=== PATIENT | female | born 1995 | race Caucasian/White ===

== ENCOUNTER 2017-07-02 14:48 | Emergency (ER) | payer BC ==
--- NOTE | 2017-07-02 14:54 | UC ---
Knee Pain HPI - HPI Summary HPI Summary: 22 YEAR OLD PRESENTS WITH LEFT KNEE PAIN AFTER TWISTING WHILE PLAYING SOCCER. - History of Current Complaint Stated Complaint: LEFT KNEE PAIN Time Seen by Provider: 07/02/17 14:54 Hx Obtained From: Patient Hx Last Menstrual Period: 1.5 years Onset/Duration: Sudden Onset Severity Initially: Moderate Severity Currently: Moderate Pain Scale Used: 0-10 Numeric - 6 Character: Sharp Aggravating Factor(s): Movement Alleviating Factor(s): Rest - Allergies/Home Medications Allergies/Adverse Reactions: Allergies Allergy/AdvReac Type Severity Reaction Status Date / Time No Known Allergies Allergy Verified 07/02/17 15:04 Home Medications: Home Medications Acyclovir* [Zovirax 200 MG CAP*] 200 mg PO BID 07/02/17 [History Confirmed 07/02] PMH/Surg Hx/FS Hx/Imm Hx Previously Healthy: Yes - Surgical History Surgical History: None - Family History Known Family History: Negative: Cardiac Disease, Hypertension, Diabetes - Social History Alcohol Use: Weekly Alcohol Amount: 3 Substance Use Type: None Smoking Status (MU): Never Smoked Tobacco Have You Smoked in the Last Year: No Review of Systems Constitutional: Negative Skin: Negative Eyes: Negative ENT: Negative Respiratory: Negative Cardiovascular: Negative Gastrointestinal: Negative Genitourinary: Negative Motor: Negative Neurovascular: Negative Musculoskeletal: Other: - LEFT KNEE PAIN/SWELLING Neurological: Negative Psychological: Negative All Other Systems Reviewed And Are Negative: Yes Physical Exam Triage Information Reviewed: Yes Vital Signs Reviewed: Yes Eye Exam: Normal ENT Exam: Normal Dental Exam: Normal Neck exam: Normal Neck: Positive: 1 Respiratory Exam: Normal Cardiovascular Exam: Normal Abdominal Exam: Normal Musculoskeletal: Positive: Strength Intact, ROM Intact, No Edema, Other: - LEFT KNEE PAIN Neurological Exam: Normal Psychological Exam: Normal Skin Exam: Normal Knee Pain Course/Dx - Differential Dx/Diagnosis Provider Diagnoses: LEFT KNEE CONTUSION Discharge - Discharge Plan Condition: Stable Disposition: HOME Prescriptions: Ibuprofen TAB* [Motrin TAB* 800 MG] 800 mg PO Q8H #30 tab Patient Education Materials: Knee Sprain (ED) Referrals: Elias Morales MD [Medical Doctor] - Non Staff,Doctor [Primary Care Provider] -
[2017-07-02 15:08] VITALS: BP 102/67
--- NOTE | 2017-07-02 15:52 | RAD ---
INDICATION: Left knee injury. TECHNIQUE: 4 views of the left knee were obtained. FINDINGS: The bones are in normal alignment. No joint effusion or fracture is seen. Joint spaces appear maintained. IMPRESSION: NO EVIDENCE FOR FRACTURE, IF THE PATIENT'S SYMPTOMS PERSIST RECOMMEND FOLLOW-UP IMAGING.
== END 2017-07-02 15:49 | disposition home or self-care (01) ==
LOC: UCCORT 14:48
DX: S80.02XA Contusion of left knee, initial encounter (principal); X58.XXXA Exposure to other specified factors, initial encounter; Y93.66 Activity, soccer
CPT/HCPCS: 99213; G0463

== ENCOUNTER 2017-12-02 13:52 | Emergency (ER) | payer BC ==
--- NOTE | 2017-12-02 16:23 | UC ---
Skin Complaint HPI - HPI Summary HPI Summary: 22 y/o female presents to the urgent care c/o "LUMP" RIGHT GROIN X "A COUPLE WEEKS." PT STATES AREA MORE PAINFUL LAST NIGHT WHEN SHE WAS WALKING AND WHEN SHE LAID ON HER BACK. PT STATES SHE CAN ALSO FEEL IT WHEN SHE COUGHS. - History of Current Complaint Time Seen by Provider: 12/02/17 16:15 Stated Complaint: SKIN COMPLAINT Hx Obtained From: Patient Hx Last Menstrual Period: 1.5 years ?: No - Allergy/Home Medications Allergies/Adverse Reactions: Allergies Allergy/AdvReac Type Severity Reaction Status Date / Time No Known Allergies Allergy Verified 12/02/17 16:16 Home Medications: Home Medications Ibuprofen TAB* [Advil TAB*] 400 mg PO Q6H PRN 12/02/17 [History Confirmed ] PMH/Surg Hx/FS Hx/Imm Hx - Surgical History Surgical History: None Surgery Procedure, Year, and Place: wisdom teeth - Family History Known Family History: Negative: Cardiac Disease, Hypertension, Diabetes - Social History Alcohol Use: Weekly Alcohol Amount: 3 Substance Use Type: None Smoking Status (MU): Never Smoked Tobacco Have You Smoked in the Last Year: No Course/Dx - Diagnoses Provider Diagnoses: 1- Painful RT inguinal lymph node Discharge - Discharge Plan Condition: Stable Disposition: HOME Patient Education Materials: Inguinal Hernia (ED), Adenitis (ED) Referrals: [facility] [place] [facility] [Outside] - 1 Week Additional Instructions: 1- there is not hernia observed at this moment. 2-Please take ibuprofen or tylenol PO q6-8hrs prn as instructed after meals to alleviate pain. Increase fluid intake, eat well, rest and avoid strenuous exercise 3-If symptoms do not improve or worsen please go to your [facility] for for further evaluation and treatment. You have been on the Nexplanon for several years just to r/o ovarian cysts. However if you develop severe abdominal pain or pelvic pain please go immediately to the ER for further treatment.
[2017-12-02 16:25] VITALS: BP 104/69
== END 2017-12-02 17:03 | disposition home or self-care (01) ==
LOC: UCCORT 13:52
DX: I89.8 Other specified noninfective disorders of lymphatic vessels and lymph nodes (principal)
CPT/HCPCS: 99211; G0463